=== PATIENT | male | born 1980 | race Caucasian/White ===

== ENCOUNTER 2022-11-14 02:19 | Emergency (ER) | payer OTHER ==
[2022-11-14] MEDS ORDERED: ONDANSETRON 4 MG/2 ML VIAL IVP STA (02:42)
[2022-11-14] MEDS ORDERED: SODIUM CHLORIDE 0.9% 1,000 ML IV STA (02:42)
[2022-11-14] MEDS ORDERED: MORPHINE SULFATE 4 MG/ML SYRINGE IVP STA (02:43)
--- NOTE | 2022-11-14 02:44 | ED ---
General Adult HPI - General Source: patient, RN notes reviewed Mode of arrival: ambulatory Limitations: no limitations <Daysi Benites - Last Filed: 11/14/22 04:22> <Alejandro Zhang - Last Filed: 11/14/22 06:01> - General Chief complaint: Abdominal Pain Stated complaint: ABD Pain Time Seen by Provider: 11/14/22 02:34 - History of Present Illness Initial comments: Patient is a 41-year-old male presenting to the emergency room with complaints of lower abdominal pain with associated nausea and vomiting. He reports that the pain began earlier in the day yesterday around 3 PM as back pain and has progressed to lower abdominal pain. He states that his emesis contained food content and denied any blood in his emesis. He reports that he had similar symptoms to his presenting symptoms due to constipation before that improved without intervention however he states that his symptoms were not this severe. He reports having a history of GERD but is not currently taking any medications for it as he changed his diet and states that his symptoms have been well-controlled without medication. He denies any other symptoms associated with his presenting symptoms including chest pain, shortness of breath not directly related reduce deep inspiration from pain, diarrhea, flank pain, dysuria, hematuria, headache, dizziness, fevers or chills. (Daysi Benites) - Related Data Previous Rx's Medication Instructions Recorded Amoxic-Pot Clav 875-125Mg 1 tab PO Q8HR 3 Days #15 tab 11/14/22 [Augmentin 875-125] Ondansetron Odt [Zofran Odt] 4 mg PO Q8HR PRN 2 Days #6 tab 11/14/22 Allergies Allergy/AdvReac Type Severity Reaction Status Date / Time No Known Allergies Allergy Verified 11/14/22 02:35 Review of Systems ROS Other: All systems not noted in ROS Statement are negative. <Daysi Benites - Last Filed: 11/14/22 04:22> ROS Other: All systems not noted in ROS Statement are negative. <Alejandro Zhang - Last Filed: 11/14/22 06:01> ROS Statement: Those systems with pertinent positive or pertinent negative responses have been documented in the HPI. Past Medical History Past Medical History: GERD/Reflux, Sleep Apnea/CPAP/BIPAP History of Any Multi-Drug Resistant Organisms: None Reported Past Surgical History: No Surgical Hx Reported Past Psychological History: Anxiety Smoking Status: Former smoker Past Alcohol Use History: Occasional Past Drug Use History: None Reported <Daysi Benites - Last Filed: 11/14/22 04:22> General Exam Limitations: no limitations <Daysi Benites - Last Filed: 11/14/22 04:22> - General Exam Comments Initial Comments: GENERAL: No acute distress, well developed, well nourished. HEENT: Normocephalic, atraumatic. Pupils equal, round, reactive to light. Moist mucous membranes. LUNGS: No respiratory distress. Clear to auscultation, no adventitious sounds, no use of accessory muscles. HEART: Regular rate and rhythm without murmur, rub, or gallop. ABDOMEN: Normal bowel sounds. Soft, mild bloating noted, bilateral lower quadrant tenderness more severe to left than right, no upper quadrant tende rness. No rebound tenderness or guarding. BACK: Normal inspection. EXTREMITIES: No edema. No tenderness. Moves all extremities. NEUROLOGIC: Alert & oriented x 3. CN II-XII grossly intact. PSYCHIATRIC: Normal affect and behavior. DERMATOLOGIC: Skin intact, without rashes or lesions noted. (Daysi Benites) Course Vital Signs 11/14/22 11/14/22 11/14/22 02:25 04:01 05:39 Temperature 98.0 F Pulse Rate 92 86 93 Respiratory 18 18 15 Rate Blood Pressure 154/99 113/73 O2 Sat by Pulse 97 96 96 Oximetry 11/14/22 05:44 Temperature 97.7 F Pulse Rate 85 Respiratory Rate Blood Pressure 113/75 O2 Sat by Pulse Oximetry Medical Decision Making - Lab Data Result diagrams: 11/14/22 03:15 11/14/22 03:15 <Daysi Benites - Last Filed: 11/14/22 04:22> - Lab Data Result diagrams: 11/14/22 03:15 11/14/22 03:15 <Alejandro Zhang - Last Filed: 11/14/22 06:01> - Medical Decision Making Was pt. sent in by a medical professional or institution (, PA, USER EXPERIENCE TEAM LEAD, urgent care, hospital, or jail...) When possible be specific @ -No Did you speak to anyone other than the patient for history (EMS, parent, family, police, friend...)? What history was obtained from this source @ -No Did you review nursing and triage notes (agree or disagree)? Why? @ -I reviewed and agree with nursing and triage notes Were old charts reviewed (outside hosp., previous admission, EMS record, old EKG, old radiological studies, urgent care reports/EKG's, jail records)? Report findings @ -No old charts were reviewed Differential Diagnosis (chest pain, altered mental status, abdominal pain women, abdominal pain men, vaginal bleeding, weakness, fever, dyspnea, syncope, headache, dizziness, GI bleed, back pain, seizure, CVA, palpatations, mental h ealth, musculoskeletal)? @ -Differential Abdominal Pain Men: Appendicitis, cholecystitis, diverticulosis, ischemic bowel, pancreatitis, hepatitis, UTI, gastroenteritis, AAA, incarcerated hernia, bowel obstruction, constipation, inflammatory bowel, hepatitis, peptic ulcer disease, splenic infarction, perforated viscus, testicular torsion, this is not meant to be an all-inclusive list EKG interpreted by me (3pts min.). @ -Sinus rhythm, ventricular rate 91 bpm, [place] interval 126 ms, QRS duration 103 ms, QT/QTC 366/450 ms, PRT axes 50, 60, 40 X-rays interpreted by me (1pt min.). @ -None done CT interpreted by me (1pt min.). @ -Computed tomography scan abdomen and pelvis pending. U/S interpreted by me (1pt. min.). @ -None done What testing was considered but not performed or refused? (CT, X-rays, U/S, la bs)? Why? @ -None What meds were considered but not given or refused? Why? @ -None Did you discuss the management of the patient with other professionals (professionals i.e. , PA, USER EXPERIENCE TEAM LEAD, lab, RT, psych nurse, social economist, immigration lawyer, teacher, aviation tactical readiness officer, showcase trimmer)? Give summary @ -No Was smoking cessation discussed for >3mins.? @ -No Was critical care preformed (if so, how long)? @ -No Were there social determinants of health that impacted care today? How? (Homelessness, low income, unemployed, alcoholism, drug addiction, transportation, low edu. Level, literacy, decrease access to med. care, detention, rehab)? @ -No Was there de-escalation of care discussed even if they declined (Discuss DNR or withdrawal of care, Hospice)? DNR status @ -No What co-morbidities impacted this encounter? (DM, HTN, Smoking, COPD, CAD, Cancer, CVA, ARF, Chemo, Hep., AIDS, mental health diagnosis, sleep apnea, morbid obesity)? @ -None Was patient admitted / discharged? Hospital course, mention meds given and route, prescriptions, significant lab abnormalities, going to OR and other pertinent info. @ --41 year-old male presenting to the emergency room with complaints of lower abdominal pain with associated nausea and vomiting. He reports that the pain began earlier in the day yesterday around 3 PM as back pain and has progressed to lower abdominal pain. He states that his emesis contained food content and denied any blood in his emesis. Will begin workup for abdominal pain with CBC, CMP, amylase, lipase, lactic acid, urinalysis and blood culture along with computed tomography scan of the abdomen and pelvis. In the setting of pain initiating as back pain will also obtain EKG and troponin. Will give IV hydration 1 L normal saline along with Zofran for nausea and morphine for pain. Pain and nausea improved with morphine and Zofran. Tolerating IV hydration well. Laboratory studies reveal slightly elevated 12.1, neutrophils elevated temperature no other abnormalities on CBC CMP with elevated glucose 109, electrolytes and renal function normal, liver function normal, alkaline phosphate normal, amylase slightly elevated at 116, lipase normal, troponin neg ative. Urinalysis negative. Awaiting computed tomography scan results high concern for possible small bowel obstruction. Case discussed with and signed out to Dr. Zhang for further evaluation and disposition. (Daysi Benites) Patient signed out to me pending results of CT imaging. Presented with lower abdominal and back pain primarily in the left lower quadrant with nausea, vomiting, diarrhea. Workup thus far is relatively unremarkable. Has a minimal leukocytosis likely secondary to nausea and vomiting. Patient also has very minimal elevated amylase of 116. Troponin is undetectable. Labs otherwise within acceptable limits including a lactic acid within normal limits. EKG showed no signs of acute ischemia. CT abdomen and pelvis interpreted by myself which showed findings concerning for diverticulitis. There is also an incidental finding of cholelithiasis without any evidence of cholecystitis. Patient also has a left upper lobe pulmonary nodule. I updated the patient. He is relatively asymptomatic at this time. Has tolerated oral intake. We discussed his results. He expresses understanding that he does have a pulmonary nodule as well as diverticulitis. Recommended repeat imaging in 2-3 months for the pulmonary nodule which she was in agreement with. The diverticulitis, labs are unremarkable. He'll be discharged home with oral antibiotics, as well as a starter pack and Tylenol threes, as well as oral Zofran. Discussed symptomatic treatment as well as good hydration strategies. Patient was in agreement. He'll be discharged home at this time. Augmentin will be provided with a single dose. I will provide the patient with a prescription for Augmentin, ODT Zofran. I instructed the patient to follow up with their PCP in the next 1-3 days. I provided contact information for follow up with [facility] PCP. I e xplained that the patient should return to the emergency department if they experience any worsening symptoms. Strict return precautions were discussed with the patient. The patient expressed understanding of these instructions. I answered all questions that the patient had. The patient was discharged home in good condition with their prescriptions and follow up information. Diagnosis/symptom? @ -Diverticulitis, nausea and vomiting Acute, or Chronic, or Acute on Chronic? @ -Acute Uncomplicated (without systemic symptoms) or Complicated (systemic symptoms)? @ -Complicated Side effects of treatment? @ -none Exacerbation, Progression, or Severe Exacerbation] @ -no Poses a threat to life or bodily function? @ -no Diagnosis/symptom? @ -Pulmonary nodule Acute, or Chronic, or Acute on Chronic? @ -Unknown Uncomplicated (without systemic symptoms) or Complicated (systemic symptoms)? @ -Uncomplicated Side effects of treatment? @ -none Exacerbation, Progression, or Severe Exacerbation] @ -no Poses a threat to life or bodily function? @ -Potentially depending on etiology Diagnosis/symptom? @ -Cholelithiasis Acute, or Chronic, or Acute on Chronic? @ -Chronic Uncomplicated (without systemic symptoms) or Complicated (systemic symptoms)? @ -Uncomplicated Side effects of treatment? @ -none Exacerbation, Progression, or Severe Exacerbation] @ -no Poses a threat to life or bodily function? @ -no (Alejandro Zhang) - Lab Data Lab Results 11/14/22 11/14/22 11/14/22 Range/Units 03:15 03:15 03:15 WBC 12.1 H (3.8-10.6) k/uL RBC 5.54 (4.30-5.90) m/uL Hgb 16.8 (13.0-17.5) gm/dL Hct 48.5 (39.0-53.0) % MCV 87.5 (80.0-100.0) fL MCH 30.3 (25.0-35.0) pg MCHC 34.6 (31.0-37.0) g/dL RDW 13.6 (11.5-15.5) % Plt Count 200 (150-450) k/uL MPV 8.3 Neutrophils % 84 % Lymphocytes % 10 % Monocytes % 4 % Eosinophils % 0 % Basophils % 0 % Neutrophils # 10.2 H (1.3-7.7) k/uL Lymphocytes # 1.2 (1.0-4.8) k/uL Monocytes # 0.5 (0-1.0) k/uL Eosinophils # 0.0 (0-0.7) k/uL Basophils # 0.0 (0-0.2) k/uL Sodium 138 (137-145) mmol/L Potassium 3.9 (3.5-5.1) mmol/L Chloride 100 (98-107) mmol/L Carbon Dioxide 28 (22-30) mmol/L Anion Gap 10 mmol/L BUN 13 (9-20) mg/dL Creatinine 1.08 (0.66-1.25) mg/dL Est GFR (CKD-EPI)AfAm >90 (>60 ml/min/1.73 sqM) Est GFR (CKD-EPI)NonAf 86 (>60 ml/min/1.73 sqM) Glucose 109 H (74-99) mg/dL Plasma Lactic Acid Juan Pablo 1.6 (0.7-2.0) mmol/L Calcium 9.6 (8.4-10.2) mg/dL Total Bilirubin 0.6 (0.2-1.3) mg/dL AST 31 (17-59) U/L ALT 35 (4-49) U/L Alkaline Phosphatase 78 (38-126) U/L Troponin I (0.000-0.034) ng/mL Total Protein 8.0 (6.3-8.2) g/dL Albumin 4.6 (3.5-5.0) g/dL Amylase 116 H (30-110) U/L Lipase 145 (23-300) U/L Urine Color Urine Appearance (Clear) Urine pH (5.0-8.0) Ur Specific Ada (1.001-1.035) Urine Protein (Negative) Urine Glucose (UA) (Negative) Urine Ketones (Negative) Urine Blood (Negative) Urine Nitrite (Negative) Urine Bilirubin (Negative) Urine Urobilinogen (<2.0) mg/dL Ur Leukocyte Esterase (Negative) 11/14/22 11/14/22 Range/Units 03:15 03:34 WBC (3.8-10.6) k/uL RBC (4.30-5.90) m/uL Hgb (13.0-17.5) gm/dL Hct (39.0-53.0) % MCV (80.0-100.0) fL MCH (25.0-35.0) pg MCHC (31.0-37.0) g/dL RDW (11.5-15.5) % Plt Count (150-450) k/uL MPV Neutrophils % % Lymphocytes % % Monocytes % % Eosinophils % % Basophils % % Neutrophils # (1.3-7.7) k/uL Lymphocytes # (1.0-4.8) k/uL Monocytes # (0-1.0) k/uL Eosinophils # (0-0.7) k/uL Basophils # (0-0.2) k/uL Sodium (137-145) mmol/L Potassium (3.5-5.1) mmol/L Chloride (98-107) mmol/L Carbon Dioxide (22-30) mmol/L Anion Gap mmol/L BUN (9-20) mg/dL Creatinine (0.66-1.25) mg/dL Est GFR (CKD-EPI)AfAm (>60 ml/min/1.73 sqM) Est GFR (CKD-EPI)NonAf (>60 ml/min/1.73 sqM) Glucose (74-99) mg/dL Plasma Lactic Acid Juan Pablo (0.7-2.0) mmol/L Calcium (8.4-10.2) mg/dL Total Bilirubin (0.2-1.3) mg/dL AST (17-59) U/L ALT (4-49) U/L Alkaline Phosphatase (38-126) U/L Troponin I <0.012 (0.000-0.034) ng/mL Total Protein (6.3-8.2) g/dL Albumin (3.5-5.0) g/dL Amylase (30-110) U/L Lipase (23-300) U/L Urine Color Yellow Urine Appearance Clear (Clear) Urine pH 6.5 (5.0-8.0) Ur Specific Ada 1.032 (1.001-1.035) Urine Protein Negative (Negative) Urine Glucose (UA) Negative (Negative) Urine Ketones Negative (Negative) Urine Blood Negative (Negative) Urine Nitrite Negative (Negative) Urine Bilirubin Negative (Negative) Urine Urobilinogen <2.0 (<2.0) mg/dL Ur Leukocyte Esterase Negative (Negative) Disposition <Daysi Benites - Last Filed: 11/14/22 04:22> Is patient prescribed a controlled substance at d/c from ED?: No Time of Disposition: 05:44 <Alejandro Zhang - Last Filed: 11/14/22 06:01> Clinical Impression: Diverticulitis, Lung nodule, Cholelithiases Disposition: HOME SELF-CARE Condition: Good Instructions (If sedation given, give patient instructions): Diverticulitis (ED), Pulmonary Nodules (ED) Additional Instructions: You have pulmonary nodule in left upper lung. Repeat imaging in 2-3 months recommended. Follow up with PCP. You have diverticulitis, take antibiotics and supportive care. Return if any concerns or worsening symptoms. Prescriptions: Amoxic-Pot Clav 875-125Mg [Augmentin 875-125] 1 tab PO Q8HR 3 Days #15 tab Ondansetron Odt [Zofran Odt] 4 mg PO Q8HR PRN 2 Days #6 tab PRN Reason: Nausea Referrals: Nonstaff,Physician [REFERRING] - 1-2 days Forms: Area PCPs
[2022-11-14 03:29] LABS: Basophils % (A) 0 %; Eosinophils % (A) 0 %; HCT 48.5 % (39.0-53.0); HGB 16.8 gm/dL (13.0-17.5); Lymphocytes # (A) 1.2 k/uL (1.0-4.8); Lymphocytes % (A) 10 %; MCH 30.3 pg (25.0-35.0); MCHC 34.6 g/dL (31.0-37.0); MCV 87.5 fL (80.0-100.0); Mean Platelet Volume 8.3; Monocytes # (A) 0.5 k/uL (0-1.0); Monocytes % (A) 4 %; Neutrophils # (A) 10.2 k/uL (1.3-7.7); Neutrophils % (A) 84 %; Platelet Count 200 k/uL (150-450); RBC 5.54 m/uL (4.30-5.90); RDW 13.6 % (11.5-15.5); WBC 12.1 k/uL (3.8-10.6)
[2022-11-14 03:40] LABS: ALT 35 U/L (4-49); AST 31 U/L (17-59); African American GFR (CKD) >90 (>60 ml/min/1.73 sqM); Albumin 4.6 g/dL (3.5-5.0); Alkaline Phosphatase 78 U/L (38-126); Amylase 116 U/L (30-110); Anion Gap 10 mmol/L; Blood Urea Nitrogen 13 mg/dL (9-20); Calcium 9.6 mg/dL (8.4-10.2); Carbon Dioxide 28 mmol/L (22-30); Chloride 100 mmol/L (98-107); Glucose 109 mg/dL (74-99); Lipase 145 U/L (23-300); Non-African American GFR(CKD) 86 (>60 ml/min/1.73 sqM); Potassium 3.9 mmol/L (3.5-5.1); Sodium 138 mmol/L (137-145); Total Bilirubin 0.6 mg/dL (0.2-1.3)
[2022-11-14 03:53] LABS: Appearance,Urine Clear (Clear); Bilirubin,Urine Negative (Negative); Blood,Urine Negative (Negative); Color,Urine Yellow; Glucose,Urine (UA) Negative (Negative); Ketones,Urine Negative (Negative); Leukocyte Esterase,Urine Negative (Negative); Nitrite,Urine Negative (Negative); PH, Urine 6.5 (5.0-8.0); Protein,Urine Negative (Negative); Specific Gravity,Urine 1.032 (1.001-1.035); Urobilinogen,Urine <2.0 mg/dL (<2.0)
--- NOTE | 2022-11-14 05:25 | CT ---
EXAM: CT Abdomen and Pelvis With Intravenous Contrast CLINICAL HISTORY: ITS.REASON CT Reason: abdominal pain TECHNIQUE: Axial computed tomography images of the abdomen and pelvis with intravenous contrast. CTDI is 17 mGy and DLP is 816 mGy-cm. This CT exam was performed using one or more of the following dose reduction techniques: automated exposure control, adjustment of the mA and/or kV according to patient size, and/or use of iterative reconstruction technique. COMPARISON: No relevant prior studies available. FINDINGS: Lung bases: Dependent atelectatic changes. Partially visualized left upper lobe airspace disease with nodularity. Findings may relate to impacted bronchi versus nodules. Consider dedicated imaging. Mediastinum: Small esophageal hiatal hernia. ABDOMEN: Liver: Unremarkable. No mass. Gallbladder and bile ducts: Cholelithiasis without gross findings to suggest cholecystitis consider HIDA imaging if there is further concern. No ductal dilation. Pancreas: Unremarkable. No mass. No ductal dilation. Spleen: Unremarkable. No splenomegaly. Adrenals: Unremarkable. No mass. Kidneys and ureters: Unremarkable. No solid mass. No hydronephrosis. Stomach and bowel: Colonic diverticulosis. Mild stranding adjacent to the colon. Findings can be seen with diverticulitis. Consider correlation with laboratory values. No evidence of bowel obstruction. PELVIS: Appendix: Normal appendix. Bladder: Unremarkable. No mass. Reproductive: Unremarkable as visualized. ABDOMEN and PELVIS: Intraperitoneal space: Unremarkable. No free air. No significant fluid collection. Bones/joints: Degenerative changes in the spine. No acute fracture. No dislocation. Soft tissues: Umbilical hernia containing fat. Gynecomastia. Vasculature: Unremarkable. No abdominal aortic aneurysm. Lymph nodes: Unremarkable. No enlarged lymph nodes. IMPRESSION: 1. Colonic diverticulosis. Mild stranding adjacent to the colon. Findings can be seen with diverticulitis. Consider correlation with laboratory values. 2. Partially visualized left upper lobe airspace disease with nodularity. Findings may relate to impacted bronchi versus nodules. Consider dedicated imaging. 3. No other acute findings. 4. Incidental findings as described.
[2022-11-14 05:41] VITALS: RESP 15
[2022-11-14 05:45] VITALS: BP 113/75; PULSE 85; TEMP 97.7
[2022-11-14] MEDS ORDERED: AMOXIC-POT CLAV 875-125MG 1 EACH TAB PO STA (05:48)
[2022-11-14] MEDS ORDERED: ACET/COD 300 MG/30 MG STARTER PACK 6 TAB BTL PO STA (05:48)
== END 2022-11-14 05:55 | disposition home or self-care (01) ==
LOC: EC 02:19
DX: K57.92 Diverticulitis of intestine, part unspecified, without perforation or abscess without bleeding (principal); K80.20 Calculus of gallbladder without cholecystitis without obstruction; R91.1 Solitary pulmonary nodule; Z86.59 Personal history of other mental and behavioral disorders; Z87.891 Personal history of nicotine dependence
CPT/HCPCS: 36415; 93005; 80053; 82150; 83605; 83690; 84484; 85025; 81003; 87040; 74177; 99284; 96374; 96375; 96361; J2270; J2405; Q9967

== ENCOUNTER → 2023-01-18 | Outpatient (CLI) | payer OTHER ==
--- NOTE | 2023-01-18 14:58 | CT ---
EXAMINATION TYPE: CT chest wo con CT DLP: 973 mGycm, Automated exposure control for dose reduction was used. DATE OF EXAM: 01/18/2023 1:54 PM COMPARISON: CT abdomen pelvis 11/14/2022 CLINICAL INDICATION:Male, 42 years old with history of R91.1; PHH, Abnormality found on prior CT TECHNIQUE: Multiple axial images were obtained through the chest without IV contrast. Lack of IV or o ral contrast limits evaluation of solid and hollow organ viscera. MIP was performed. Coronal and sagi ttal reformats reviewed. FINDINGS: LUNGS/ PLEURA: No pleural effusion, pneumothorax, focal consolidation. Left lower lobe subpleural 4 m m pulmonary groundglass nodule (series 4, image 59). Nodule within the anterior medial left upper lo be measuring 1.3 cm is consistent with an AVM. 6 mm groundglass nodule along the right major fissure in the right upper lobe (series 4, image 23). AIRWAY: Patent and unremarkable.. HEART: Size within normal limits. No pericardial effusion. MEDIASTINUM: No gross evidence of adenopathy. VASCULATURE: No aortic aneurysm. MUSCULOSKELETAL: No acute osseous abnormalities SOFT TISSUES/LYMPH NODES: Unremarkable. LOWER NECK: No significant findings. UPPER ABDOMEN: Cholelithiasis. IMPRESSION: 1. No acute thoracic process. 2. 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 3. Couple of scattered pulmonary groundglass nodules measuring up to 6 mm. Follow-up CT chest in 3-6 months is recommended. 4. Cholelithiasis.
== END | disposition home or self-care (01) ==
LOC: RADCTMAIN 13:28
DX: K80.20 Calculus of gallbladder without cholecystitis without obstruction (principal); Q25.72 Congenital pulmonary arteriovenous malformation; R91.8 Other nonspecific abnormal finding of lung field
CPT/HCPCS: 71250

== ENCOUNTER → 2023-07-04 | Outpatient (CLI) | payer OTHER ==
--- NOTE | 2023-07-04 15:33 | CT ---
EXAMINATION TYPE: CT chest w con CT DLP: 363.9 mGycm, Automated exposure control for dose reduction was used. DATE OF EXAM: 07/04/2023 3:16 PM COMPARISON: 01/18/2023. CLINICAL INDICATION:Male, 42 years old with history of M25.511 PAIN IN RIGHT SHOULDER; Follow up for lung nodules. TECHNIQUE: Multiple axial images were obtained through the chest. Sagittal and coronal reformats were created for review. Contrast used:100ml mL of Isovue 370 with IV Contrast (None if empty) Oral contrast used: (None if empty) FINDINGS: LUNGS/ PLEURA: Pulmonary arteriovenous small formation as described below. This unchanged from prior right upper lung pulmonary nodule measuring 6 mm within the minor fissure is stable.. Right upper lobe pulmonary nodule posteriorly measuring 7 mm is stable. AIRWAY: Patent and unremarkable. HEART: Size within normal limits. MEDIASTINUM: No gross evidence of adenopathy. VASCULATURE: No aortic aneurysm. 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 MUSCULOSKELETAL: No acute osseous abnormalities SOFT TISSUES/LYMPH NODES: Unremarkable. LOWER NECK: No significant findings. UPPER ABDOMEN: No significant findings. IMPRESSION: 1. 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 2. Stable pulmonary nodules. Follow up recommendations for incidental pulmonary nodules, if there are any, are per Fleischner?s [employer] or [employer]. [email or web address].org/articles/[email or web address]?lang=us
== END | disposition home or self-care (01) ==
LOC: RADCTMAIN 14:34
PROVIDERS: ATTEND Internal Medicine Critical Care Medicine
DX: R91.8 Other nonspecific abnormal finding of lung field (principal)
CPT/HCPCS: 71260; Q9967

== ENCOUNTER 2024-04-20 22:43 | Emergency (ER) | payer OTHER ==
[2024-04-20 22:47] VITALS: RESP 18; TEMP 98.8
--- NOTE | 2024-04-20 23:38 | ED ---
General Adult HPI - General Chief complaint: Extremity Injury, Upper Stated complaint: Left froearm swelling Time Seen by Provider: 04/20/24 23:00 Source: patient Mode of arrival: ambulatory - History of Present Illness Initial comments: Patient is a 43-year-old male with no significant past medical history presenting today for left forearm numbness and swelling. Patient was sitting at home watching a movie when he spontaneously began having tingling on the dorsal aspect of his left forearm as well as a sensation of swelling and pressure. Denies injury to this area. Denies recent surgeries. Denies history blood clots. States that he was concerned that this could "be his heart or something" so came to the ER. He denies any other numbness, weakness, dizziness, heada natalie, changes in vision, slurred speech, chest pain, shortness of breath, abdominal pain, nausea, vomiting, diarrhea. Denies history IVDU. Denies fevers or chills. No prior history of CAD or CVA. Was scratched by his cat on his left hand recently recently. - Related Data Previous Rx's Medication Instructions Recorded Amoxic-Pot Clav 875-125Mg 1 tab PO Q8HR 3 Days #15 tab 11/14/22 [Augmentin 875-125] Ondansetron Odt [Zofran Odt] 4 mg PO Q8HR PRN 2 Days #6 tab 11/14/22 Allergies Allergy/AdvReac Type Severity Reaction Status Date / Time No Known Allergies Allergy Verified 04/20/24 22:47 Review of Systems ROS Statement: Those systems with pertinent positive or pertinent negative responses have been documented in the HPI. ROS Other: All systems not noted in ROS Statement are negative. Constitutional: Denies: fever, chills Eyes: Denies: vision change Respiratory: Denies: dyspnea Cardiovascular: Denies: chest pain Gastrointestinal: Denies: abdominal pain, nausea, vomiting Skin: Reports: change in color. Denies: rash, lesions Neurological: Reports: paresthesias. Denies: headache, weakness, numbness Past Medical History Past Medical History: GERD/Reflux, Sleep Apnea/CPAP/BIPAP Additional Past Medical History / Comment(s): diverticulitis, slipping rib syndrome History of Any Multi-Drug Resistant Organisms: None Reported Past Surgical History: No Surgical Hx Reported Additional Past Surgical History / Comment(s): cyst removal L wrist. Past Psychological History: Anxiety Smoking Status: Former smoker Past Alcohol Use History: Occasional Past Drug Use History: Marijuana General Exam - General Exam Comments Initial Comments: PE: CONSTITUTIONAL: No apparent distress, well appearing SKIN: Warm, dry, no jaundice, hives or petechiae, faint erythema to dorsal aspect left forearm EYES: Pupils are equally round, extraocular movements intact without nystagmus, clear conjunctiva, non-icteric sclera HENT: Normocephalic, atraumatic, moist mucus membranes, oropharynx clear without exudates NECK: , Full range of motion, normal appearance PULMONARY: Clear to auscultation without wheezes, rhonchi, or rales, normal excursion, no accessory muscle use and no stridor CARDIOVASCULAR: Regular rate, rhythm, normal S1 and S2. No appreciated murmurs, rubs or gallops. Strong radial pulses with intact distal perfusion. No lower extremity edema GASTROINTESTINAL: Soft, active bowel sounds throughout, non-tender, non- distended, no palpable masses, no rebound or guarding. No hepatosplenomegaly GENITOURINARY: MUSCULOSKELETAL: Extremities have no gross deformity, left forearm appears slightly more swollen then right, though no edema, no lymphadenopathy of the left arm/ axilla, no TTP, no joint swelling, moves through full ROM without pain or deficit, No calf swelling NEUROLOGIC: [_a/o x 3, GCS 15, normal mentation and speech. Moves all extremit ies x 4 without motor or sensory deficit, cranial nerves: II (visual lua without defects), III, IV and (extraocular movements are intact, pupils are equal with normal reaction to light), V (intact facial sensation and jaw opening), VII (no facial droop), IX and X (normal palate movement, midline uvula, normal voice), XI (symmetrical shoulder shrug and lateral head rotation against resistance), XII (midline tongue protrusion). Motor strength is 5/5 in all extremities. No abnormal movements. Normal muscle tone. Sensation to light touch is intact bilaterally. No cerebellar signs ([id number], [id number]-sx-[id number], and rapid alternating movements are normal) ] PSYCHIATRIC:[ _normal mood and affect, thought process is clear and linear] Course Vital Signs 04/20/24 04/21/24 22:44 04:12 Temperature 98.8 F Pulse Rate 86 66 Respiratory 18 18 Rate Blood Pressure 128/86 120/75 O2 Sat by Pulse 100 93 L Oximetry EKG Findings - EKG Comments: EKG Findings:: Sinus rhythm, 88 bpm, MT interval 132 ms, QRS duration 97 ms, QT/QTc 362/408 ms, normal axis, no ST elevations or depressions, no arrhythmia, Medical Decision Making - Medical Decision Making Was pt. sent in by a medical professional or institution (, [facility], [employer], urgent care, hospital, or fci...) When possible be specific @ -No Did you speak to anyone other than the patient for history (EMS, parent, family, police, friend...)? What history was obtained from this source @ -No Did you review nursing and triage notes (agree or disagree)? Why? @ -I reviewed and agree with nursing and triage notes Were old charts reviewed (outside hosp., previous admission, EMS record, old EKG, old radiological studies, urgent care reports/EKG's, fci records)? Report findings @ Medical records reviewed Differential Diagnosis (chest pain, altered mental status, abdominal pain women, abdominal pain men, vaginal bleeding, weakness, fever, dyspnea, syncope, headache, dizziness, GI bleed, back pain, seizure, CVA, palpatations, mental health, musculoskeletal)? @ Differential diagnosis remains broad however top considerations include allergic reaction, cellulitis, ACS, DVT, CVA, this is not all inclusive list EKG interpreted by me (3pts min.). @ -As above X-rays interpreted by me (1pt min.). @ No cardiomegaly on CXR CT interpreted by me (1pt min.). @No evidence of hemorrhage or mass effect on CT brain U/S interpreted by me (1pt. min.). @No venous occlusion/ DVT What testing was considered but not performed or refused? (CT, X-rays, U/S, labs)? Why? @ -None What meds were considered but not given or refused? Why? @ -None Did you discuss the management of the patient with other professionals (professionals i.e. FREDRICK Son, CARPORT E[employer]OR, lab, RT, psych nurse, social services technician, passenger screener, teacher, forest fire control officer, case reviewer)? Give summary @ -No Was smoking cessation discussed for >3mins.? @ -No Was critical care preformed (if so, how long)? @ -No Were there social determinants of health that impacted care today? How? (Homelessness, low income, unemployed, alcoholism, drug addiction, transportation, low edu. Level, literacy, decrease access to med. care, skilled nursing, rehab)? @ -No Was there de-escalation of care discussed even if they declined (Discuss DNR or withdrawal of care, Hospice)? @ -No What co-morbidities impacted this encounter? (DM, HTN, Smoking, COPD, CAD, Cancer, CVA, ARF, Chemo, Hep., AIDS, mental health diagnosis, sleep apnea, mor bid obesity)? @ -None Was patient admitted / discharged? Hospital course, mention meds given and rou te, prescriptions, significant lab abnormalities, going to OR and other pertinent info. @ -Discharged- Previously healthy 43 y/o male presenting today for left forearm sensation of left forearm swelling, redness, tingling. No neurologic deficits on exam, scant redness present on dorsal aspect left forearm, barely perceptible swelling to left forearm compared to right. No signs of injury, no lymphadenopathy. Differential diagnosis remains broad, as noted above. With nonspecific exam and complaint workup with remain broad, including CT/CTA head neck, CXR, US UE, comprehensive labs. Discussed with patient treating with steroid, patient agreeable w/ plan. Labs and imaging reviewed. CK 382, otherwise grossly within normal limits. Other abnormal values not concerning for acute pathology related to presenting complaint. Updated pt to findings thus far, discussed obtaining UA to ensure not hematuria in setting of elevated CK that would indicate rhabdomyolysis, though of not kidney function wnl. Pt agreeable with plan. Additionally on reassesment erythema and swelling have resolved. UA negative for blood. Updated pt and symptoms have essentially resolved. Discussed with patient plan for discharge home as well as return precautions. Patient comfortable discharge at this point. In my medical judgment there is currently no evidence of an immediate life- threatening or surgical condition. Discharge is therefore indicated at this time. Discharge treatment instructions, follow up instructions, and appropriate emergency department return precautions were discussed with the patient and/or medical decision maker. Patient and/or medical decision maker expressed understanding of and agreed with the treatment plan, follow up instructions, and emergency department return precaution. All patient's and/or medical decision maker's questions were answered. The patient was advised that a small risk still exists that a serious condition could develop and was therefore instructed to return to the ED for any changes in symptoms, persistent symptoms, inability to obtain proper follow-up or for any further concerns. Patient received verbal and written instructions for this condition. Undiagnosed new problem with uncertain prognosis? @ -No Drug Therapy requiring intensive monitoring for toxicity (Heparin, Nitro, Insulin, Cardizem)? @ -No Were any procedures done? @ -No Diagnosis/symptom? @ Arm parasthesia, left Acute, or Chronic, or Acute on Chronic? @ acute Uncomplicated (without systemic symptoms) or Complicated (systemic symptoms)? @ -uncomplicated Side effects of treatment? @ -No Exacerbation, Progression, or Severe Exacerbation? @ -No Poses a threat to life or bodily function? How? (Chest pain, [place], [place], pneumonia, PE, COPD, DKA, ARF, appy, cholecystitis, CVA, Diverticulitis, Homicidal, Suicidal, threat to staff... and all critical care pts) @ -No - Lab Data Result diagrams: 04/20/24 23:52 04/20/24 23:52 Lab Results 04/20/24 04/20/24 04/20/24 Range/Units 23:52 23:52 23:52 WBC 7.5 (3.8-10.6) k/uL RBC 5.85 (4.30-5.90) m/uL Hgb 17.8 H (13.0-17.5) gm/dL Hct 52.7 (39.0-53.0) % MCV 90.1 (80.0-100.0) fL MCH 30.4 (25.0-35.0) pg MCHC 33.7 (31.0-37.0) g/dL RDW 12.9 (11.5-15.5) % Plt Count 208 (150-450) k/uL MPV 7.8 Neutrophils % 59 % Lymphocytes % 29 % Monocytes % 7 % Eosinophils % 1 % Basophils % 1 % Neutrophils # 4.5 (1.3-7.7) k/uL Lymphocytes # 2.2 (1.0-4.8) k/uL Monocytes # 0.5 (0-1.0) k/uL Eosinophils # 0.1 (0-0.7) k/uL Basophils # 0.1 (0-0.2) k/uL PT 10.2 (10.0-12.5) sec INR 0.9 (<1.2) APTT 23.5 (22.0-30.0) sec Sodium 141 (137-145) mmol/L Potassium 3.9 (3.5-5.1) mmol/L Chloride 105 (98-107) mmol/L Carbon Dioxide 28 (22-30) mmol/L Anion Gap 8 mmol/L BUN 14 (9-20) mg/dL Creatinine 1.20 (0.66-1.25) mg/dL Est GFR (CKD-EPI)AfAm 87 (>60 ml/min/1.73 sqM) Est GFR (CKD-EPI)NonAf 75 (>60 ml/min/1.73 sqM) Glucose 81 (74-99) mg/dL Calcium 10.0 (8.4-10.2) mg/dL Total Bilirubin 0.6 (0.2-1.3) mg/dL AST 41 (17-59) U/L ALT 60 H (4-49) U/L Alkaline Phosphatase 63 (38-126) U/L Creatine Kinase 382 H (55-170) U/L Troponin I (0.000-0.034) ng/mL Total Protein 8.5 H (6.3-8.2) g/dL Albumin 5.0 (3.5-5.0) g/dL Urine Color Urine Appearance (Clear) Urine pH (5.0-8.0) Ur Specific [place] (1.001-1.035) Urine Protein (Negative) Urine Glucose (UA) (Negative) Urine Ketones (Negative) Urine Blood (Negative) Urine Nitrite (Negative) Urine Bilirubin (Negative) Urine Urobilinogen (<2.0) mg/dL Ur Leukocyte Esterase (Negative) 04/20/24 04/21/24 Range/Units 23:52 02:40 WBC (3.8-10.6) k/uL RBC (4.30-5.90) m/uL Hgb (13.0-17.5) gm/dL Hct (39.0-53.0) % MCV (80.0-100.0) fL MCH (25.0-35.0) pg MCHC (31.0-37.0) g/dL RDW (11.5-15.5) % Plt Count (150-450) k/uL MPV Neutrophils % % Lymphocytes % % Monocytes % % Eosinophils % % Basophils % % Neutrophils # (1.3-7.7) k/uL Lymphocytes # (1.0-4.8) k/uL Monocytes # (0-1.0) k/uL Eosinophils # (0-0.7) k/uL Basophils # (0-0.2) k/uL PT (10.0-12.5) sec INR (<1.2) APTT (22.0-30.0) sec Sodium (137-145) mmol/L Potassium (3.5-5.1) mmol/L Chloride (98-107) mmol/L Carbon Dioxide (22-30) mmol/L Anion Gap mmol/L BUN (9-20) mg/dL Creatinine (0.66-1.25) mg/dL Est GFR (CKD-EPI)AfAm (>60 ml/min/1.73 sqM) Est GFR (CKD-EPI)NonAf (>60 ml/min/1.73 sqM) Glucose (74-99) mg/dL Calcium (8.4-10.2) mg/dL Total Bilirubin (0.2-1.3) mg/dL AST (17-59) U/L ALT (4-49) U/L Alkaline Phosphatase (38-126) U/L Creatine Kinase (55-170) U/L Troponin I <0.012 (0.000-0.034) ng/mL Total Protein (6.3-8.2) g/dL Albumin (3.5-5.0) g/dL Urine Color Colorless Urine Appearance Clear (Clear) Urine pH 6.5 (5.0-8.0) Ur Specific [place] 1.039 H (1.001-1.035) Urine Protein Negative (Negative) Urine Glucose (UA) Negative (Negative) Urine Ketones Negative (Negative) Urine Blood Negative (Negative) Urine Nitrite Negative (Negative) Urine Bilirubin Negative (Negative) Urine Urobilinogen <2.0 (<2.0) mg/dL Ur Leukocyte Esterase Negative (Negative) Disposition Clinical Impression: Arm paresthesia, left Disposition: HOME SELF-CARE Condition: Good Additional Instructions: Every disease is a spectrum and a small chance still exists that a serious condition could develop, for this reason, please monitor yourself closely for new, changing or worsening symptoms, symptoms that persist beyond 48 hours, worsening pain, swelling, new numbness, weakness, fever, inability to tolerate/keep down fluids or your medications, inability to follow up with outpatient providers as instructed and should you experience these symptoms or should you have any further concerns for your wellbeing please return to the ED or call 911 immediately. PLEASE call your primary care physician as soon as possible to arrange / discuss plan for followup appointment. Appointment in the next 1-3 days is strongly encouraged if possible. PLEASE let us know here before you leave if there is anything further we can do to be of any assistance. Take care and feel Better! Is patient prescribed a controlled substance at d/c from ED?: No Referrals: [facility],Clinic [Primary Care Provider] - 1-2 days
--- NOTE | 2024-04-21 00:14 | XR ---
EXAMINATION TYPE: XR chest 2V DATE OF EXAM: 04/21/2024 COMPARISON: Chest CT July 04, 2023 HISTORY: Left arm numbness TECHNIQUE: Frontal and lateral views of the chest are obtained. FINDINGS: There is no suspicious new focal air space opacity, pleural effusion, or pneumothorax seen . The cardiac silhouette size remains within normal limits. The osseous structures are intact. IMPRESSION: No acute cardiopulmonary process. [facility], , 04/21/2024 12:11 AM
[2024-04-21 00:17] LABS: Basophils # (A) 0.1 k/uL (0-0.2); Basophils % (A) 1 %; Eosinophils # (A) 0.1 k/uL (0-0.7); Eosinophils % (A) 1 %; HCT 52.7 % (39.0-53.0); HGB 17.8 gm/dL (13.0-17.5); Lymphocytes # (A) 2.2 k/uL (1.0-4.8); Lymphocytes % (A) 29 %; MCH 30.4 pg (25.0-35.0); MCHC 33.7 g/dL (31.0-37.0); MCV 90.1 fL (80.0-100.0); Mean Platelet Volume 7.8; Monocytes # (A) 0.5 k/uL (0-1.0); Monocytes % (A) 7 %; Neutrophils # (A) 4.5 k/uL (1.3-7.7); Neutrophils % (A) 59 %; Platelet Count 208 k/uL (150-450); RBC 5.85 m/uL (4.30-5.90); RDW 12.9 % (11.5-15.5); WBC 7.5 k/uL (3.8-10.6)
[2024-04-21] MEDS: ASPIRIN 81 MG PO STA (00:47)
[2024-04-21] MEDS: methylPREDNISolone SOD SUCCI 125 MG/2 ML VIAL IV STA (00:49)
[2024-04-21 00:57] LABS: INR 0.9 (<1.2); Partial Thromboplastin Time 23.5 sec (22.0-30.0); Prothrombin Time 10.2 sec (10.0-12.5)
[2024-04-21 01:01] LABS: ALT 60 U/L (4-49); AST 41 U/L (17-59); African American GFR (CKD) 87 (>60 ml/min/1.73 sqM); Alkaline Phosphatase 63 U/L (38-126); Anion Gap 8 mmol/L; Blood Urea Nitrogen 14 mg/dL (9-20); Carbon Dioxide 28 mmol/L (22-30); Chloride 105 mmol/L (98-107); Creatine Kinase 382 U/L (55-170); Glucose 81 mg/dL (74-99); Non-African American GFR(CKD) 75 (>60 ml/min/1.73 sqM); Potassium 3.9 mmol/L (3.5-5.1); Sodium 141 mmol/L (137-145); Total Bilirubin 0.6 mg/dL (0.2-1.3); Total Protein 8.5 g/dL (6.3-8.2)
--- NOTE | 2024-04-21 01:03 | US ---
EXAMINATION TYPE: US venous doppler duplex UE LT DATE OF EXAM: 04/21/2024 COMPARISON: NONE CLINICAL INDICATION: Male, 43 years old with history of left forearm swelling; Swelling TECHNIQUE: Grayscale, color Doppler and spectral Doppler imaging of the upper extremity. SIDE PERFORMED: Left FINDINGS: Left Arm: Negative for DVT Grayscale, color doppler, spectral doppler imaging performed of the deep veins of the left upper extr emity. IMPRESSION: No ultrasound evidence for acute deep or superficial venous thrombosis in the left upper extremity. [facility], , 04/21/2024 1:01 AM
--- NOTE | 2024-04-21 01:23 | CT ---
EXAMINATION TYPE: CT brain wo con DATE OF EXAM: 04/21/2024 COMPARISON: None. HISTORY: Patient is coming to facility with complaints of "sudden left forearm swelling, numbness and tingling." Patient denies injury to the area. CT DLP: 1787.5 combined mGycm. Automated Exposure Control for Dose Reduction was Utilized. TECHNIQUE: CT scan of the head is performed without contrast. FINDINGS: There is no acute intracranial hemorrhage, mass effect, or midline shift identified. The ventricles and sulci are within normal limits in size. Glasgow-white matter differentiation is maintai ham. The globes are intact and the visualized sinuses are clear. IMPRESSION: No acute intracranial hemorrhage or midline shift is seen. [facility], , 04/21/2024 1:20 AM
--- NOTE | 2024-04-21 01:28 | CT ---
EXAMINATION TYPE: CT angio head neck DATE OF EXAM: 04/21/2024 HISTORY: Patient is coming to facility with complaints of "sudden left forearm swelling, numbness and tingling." Patient denies injury to the area. COMPARISON: NONE CT DLP: 1787.5 combined mGycm. Automated Exposure Control for Dose Reduction was Utilized. TECHNIQUE: CTA scan of the head and neck is performed with IV Contrast, patient injected with 65 ml mL of Isovue 370, axial images are obtained, coronal and sagittal reformatted images are reviewed. 3D reconstructed images are created on an independent workstation and reviewed. FINDINGS: Carotid/Vascular Structures: Normal 3 vessel origin from aortic arch without significant plaque or st enosis. No significant plaque or stenosis in the common or internal carotid arteries bilaterally incl uding carotid bulb level. Patent external carotid arteries bilaterally. No linear hypodensity to sugg est dissection. There are codominant vertebral arteries patent to the basilar junction. There are sma ll caliber but patent bilateral posterior communicating arteries. There is poorly visualized anterior communicating artery. There is no large vessel occlusion or aneurysm at the level of the [place] of [place]. Other: Levoconvex scoliosis centered in the upper thoracic spine is seen IMPRESSION: No significant abnormality is seen. NASCET criteria was used in interpretation of this exam? [facility], , 04/21/2024 1:26 AM
[2024-04-21 03:07] LABS: Appearance,Urine Clear (Clear); Bilirubin,Urine Negative (Negative); Blood,Urine Negative (Negative); Color,Urine Colorless; Glucose,Urine (UA) Negative (Negative); Ketones,Urine Negative (Negative); Leukocyte Esterase,Urine Negative (Negative); Nitrite,Urine Negative (Negative); PH, Urine 6.5 (5.0-8.0); Protein,Urine Negative (Negative); Specific Gravity,Urine 1.039 (1.001-1.035); Urobilinogen,Urine <2.0 mg/dL (<2.0)
[2024-04-21] MEDS: SODIUM CHLORIDE 0.9% 1,000 ML IV ONE (03:19)
[2024-04-21 04:24] VITALS: BP 120/75; PULSE 66
== END 2024-04-21 04:24 | disposition home or self-care (01) ==
LOC: EC 22:43
DX: R20.2 Paresthesia of skin (principal); Z87.891 Personal history of nicotine dependence
CPT/HCPCS: 36415; 93005; 80053; 82550; 84484; 85025; 85610; 85730; 81003; 71046; 93971; 70496; 70450; 70498; 99284; 96374; 96361; Q9967; J2919

== ENCOUNTER → 2024-06-29 | Outpatient (CLI) | payer OTHER ==
--- NOTE | 2024-06-29 16:19 | CT ---
EXAMINATION TYPE: CT chest w con CT DLP: 322.8 mGycm, Automated exposure control for dose reduction was used. DATE OF EXAM: 06/29/2024 3:56 PM COMPARISON: CT chest 07/04/2023, 01/18/2023 CLINICAL INDICATION:Male, 43 years old with history of R91.8 OTHER NONSPECIFIC ABNORMAL FINDING OF JOSE NG F; PHH, Monitoring Lung nodule TECHNIQUE: Multiple axial images were obtained through the chest following the administration of 100 cc of Isovue 300. . Coronal and sagittal reformats reviewed. FINDINGS: LUNGS/ PLEURA: No pleural effusion, pneumothorax, or focal consolidation. Posterior right upper lobe stable 7 mm pulmonary nodule (series 4, image 26). No new or enlarging pulmonary nodules. Additional stable scattered AV malformations with largest within the medial aspect of the left midlung measurin g up to 1.5 cm (series 4, image 40). Additional one's are located within the periphery of the right m iddle lobe (series 4, image 24), anterior right lower lobe (series 4, image 37). Right middle lobe (s eries 9, image 18). Additional one within the peripheral left lower lobe measuring to 6 mm (series 4, image 56). AIRWAY: Patent and unremarkable.. HEART: Size within normal limits.No pericardial effusion. MEDIASTINUM: No evidence of adenopathy. VASCULATURE: No aortic aneurysm. MUSCULOSKELETAL: No acute osseous abnormalities SOFT TISSUES/LYMPH NODES: Unremarkable. LOWER NECK: No significant findings. UPPER ABDOMEN: Cholelithiasis measuring up to 2.1 cm. IMPRESSION: 1. Stable few scattered pulmonary AVMs. 2. Stable right lower lobe pulmonary nodule measuring up to 7 mm. No new or enlarging pulmonary nodul es. 3. Cholelithiasis. [facility], , 06/29/2024 4:16 PM
== END | disposition home or self-care (01) ==
LOC: RADCTMAIN 15:27
PROVIDERS: ATTEND Internal Medicine Critical Care Medicine
DX: R91.8 Other nonspecific abnormal finding of lung field (principal); K80.20 Calculus of gallbladder without cholecystitis without obstruction; Q25.72 Congenital pulmonary arteriovenous malformation; R91.1 Solitary pulmonary nodule
CPT/HCPCS: 71260; Q9967